=== PATIENT | female | born 1975 | race Caucasian/White ===

== ENCOUNTER 2017-08-12 12:56 | Emergency (ER) | payer OTHER ==
[2017-08-12 13:05] VITALS: BMI 31.3
[2017-08-12] MEDS ORDERED: SODIUM CHLORIDE 0.9% 1000 ML INFUS.BAG IV ONE (13:11)
[2017-08-12 13:55] LABS: BASO % 0.5 % (0-2.0); EOS % 0.9 % (0-4.5); HEMATOCRIT 40.8 % (32.4-45.2); HEMOGLOBIN 13.8 GM/dL (10.7-15.3); LYMPH % 19.7 % (8-40); MCH 29.6 pg (25.7-33.7); MCHC 33.8 g/dl (32.0-36.0); MEAN CELL VOLUME 87.7 fl (80-96); MEAN PLT VOLUME 8.1 fl (7.5-11.1); MONO % 7.9 % (3.8-10.2); PLATELET COUNT 298 K/MM3 (134-434); RBC 4.66 M/mm3 (3.60-5.2); RDW 13.7 % (11.6-15.6)
[2017-08-12 14:01] LABS: URINE APPEARANCE CLEAR; URINE BILIRUBIN NEGATIVE (NEGATIVE); URINE BLOOD NEGATIVE (NEGATIVE); URINE COLOR LTYELLOW; URINE GLUCOSE (UA) NEGATIVE (NEGATIVE); URINE KETONE TRACE (NEGATIVE); URINE LEUK ESTERASE NEGATIVE (NEGATIVE); URINE NITRITE NEGATIVE (NEGATIVE); URINE UROBILINOGEN NEGATIVE mg/dL (0.2-1.0)
[2017-08-12 14:02] LABS: HCG,QUALITATIVE URINE NEGATIVE
[2017-08-12 14:03] LABS: URINE PROTEIN 2+ (NEGATIVE)
[2017-08-12 14:05] LABS: EPI CELLS RARE /HPF (FEW); URINE BACTERIA RARE /hpf (NONE SEEN); URINE HYALINE CAST 2 /lpf; URINE MUCUS RARE
[2017-08-12 14:42] LABS: ALBUMIN 4.1 g/dl (3.4-5.0); ALK PHOS 88 U/L (45-117); ANION GAP 12 (8-16); BILIRUBIN,TOTAL 0.2 mg/dL (0.2-1.0); BLOOD UREA NITROGEN 13 mg/dL (7-18); CALCIUM 8.7 mg/dL (8.5-10.1); CHLORIDE 98 mmol/L (98-107); CO2 23 mmol/L (21-32); CREATININE 0.7 mg/dL (0.55-1.02); GLUCOSE,RANDOM 106 mg/dL (74-106); POTASSIUM 3.8 mmol/L (3.5-5.1); SGOT/AST 16 U/L (15-37); SGPT/ALT 29 U/L (12-78); SODIUM 133 mmol/L (136-145); TOT PROT 7.8 g/dl (6.4-8.2)
--- NOTE | 2017-08-12 15:08 | PDOC ---
History of Present Illness - General History Source: Patient Exam Limitations: No Limitations - History of Present Illness Initial Comments: 08/12/17 15:08 The patient is a 42-year-old female with a significant past medical history of diabetes, hypertension, hyperlipidemia, and anxiety, who presents to the emergency department with visual changes today. She reports she is an employee at [employer] and was walking when she noticed flashing colors in her bilateral eyes for a few minutes, causing her to become concerned. She states she had a mild headache as well. Upon interview, she states her symptoms have resolved. She states she has had hypoglycemic episodes previously but denies having these symptoms before. She states she used to take anxiety medication but does not take them now. The patient denies chest pain, shortness of breath, and dizziness. The patient denies fever, chills, abdominal pain, nausea, vomit, diarrhea, constipation, or urinary changes. Patient denies blurry vision, changes in visual acuity, pressure in the eye, eye pain, or eye redness. Patient denies any swelling, numbness, tingling, or changes in sensation or strength. Denies any recent travel. Allergies: NKDA Past Surgical History: Social History: No toxic habits reported <Mavis Dalton - Last Filed: 08/12/17 15:08> <Jf Terrazas - Last Filed: 08/12/17 18:35> - General Chief Complaint: Blurry Vision Stated Complaint: EMPLOYEE, EYE PROBLEM Time Seen by Provider: 08/12/17 13:10 Past History <Mavis Dalton - Last Filed: 08/12/17 15:08> - Past Medical History COPD: No Diabetes: Yes Disorders: Yes (UTI) HTN: Yes Psychiatric Problems: Yes (anxiety) - Suicide/Smoking/Psychosocial Hx Smoking History: Never smoked Have you smoked in the past 12 months: No Information on smoking cessation initiated: No Hx Alcohol Use: No Drug/Substance Use Hx: No Substance Use Type: None <Jf Terrazas - Last Filed: 08/12/17 18:35> - Past Medical History Allergies/Adverse Reactions: Allergies Allergy/AdvReac Type Severity Reaction Status Date / Time No Known Allergies Allergy Unverified 08/12/17 13:05 Home Medications: Ambulatory Orders metFORMIN HCL [Glucophage -] 1,000 mg PO BID 10/29/14 Lisinopril 10 mg PO DAILY 08/12/17 Review of Systems - Review of Systems Able to Perform ROS?: Yes Comments:: 08/12/17 15:08 A complete review of 10 out of 10 review of systems is taken and is negative apart from what is previously mentioned below and in the HPI. <Mavis Dalton - Last Filed: 08/12/17 15:08> *Physical Exam - Vital Signs Last Vital Signs Temp Pulse Resp BP Pulse Ox 98.2 F 147 H 18 164/98 100 08/12/17 13:01 08/12/17 13:01 08/12/17 13:01 08/12/17 13:01 08/12/17 13:01 - Physical Exam Comments: 08/12/17 15:09 Vitals: Triage Vital signs reviewed General Appearance: no acute distress, well nourished well developed, Head: Atraumatic, normocephalic Eyes: Pupils equal reactive round, extraocular movement intact Cardiac: Regular rate and rhythm, no murmurs, no rubs, no gallops, Lungs: Clear to auscultation bilateral, good air movement bilaterally, Abdomen: Soft, nondistended, normal bowel sounds, nontender to palpation Extremities: Full range of motion to all extremities, no cyanosis, clubbing, or edema Skin: Warm and dry, no rashes or lesions, no petechiae Neuro: AOX3; Cranial Nerves 2-12 grossly intact, Strength intact to all extremities, Sensation intact to all extremities Psych: normal mood, normal affect <Mavis Dalton - Last Filed: 08/12/17 15:08> - Vital Signs Last Vital Signs Temp Pulse Resp BP Pulse Ox 98.2 F 147 H 18 164/98 100 08/12/17 13:01 08/12/17 13:01 08/12/17 13:01 08/12/17 13:01 08/12/17 13:01 <Jf Terrazas - Last Filed: 08/12/17 18:35> Heart Score/ECG Review - ECG Impressions Comment:: 08/12/17 18:35 Sinus tachycardia at 1 18 bpm EKG performed at [address] interval 152, QRS 82, QTC 448, no ST elevations or T-wave inversions Interpreted by me <Jf Terrazas - Last Filed: 08/12/17 18:35> ED Treatment Course - LABORATORY CBC & Chemistry Diagram: 08/12/17 13:47 08/12/17 13:47 - ADDITIONAL ORDERS Additional order review: Laboratory Results 08/12/17 08/12/17 08/12/17 13:47 13:47 13:45 Sodium 133 L Potassium 3.8 Chloride 98 Carbon Dioxide 23 Anion Gap 12 BUN 13 Creatinine 0.7 Creat Clearance w eGFR > 60 POC Glucometer 115.58741 Random Glucose 106 Calcium 8.7 Total Bilirubin 0.2 D AST 16 ALT 29 Alkaline Phosphatase 88 Total Protein 7.8 Albumin 4.1 Urine Color Ltyellow Urine Appearance Clear Urine pH 5.0 Ur Specific [employer] 1.018 Urine Protein 2+ H Urine Glucose (UA) Negative Urine Ketones Trace H Urine Blood Negative Urine Nitrite Negative Urine Bilirubin Negative Urine Urobilinogen Negative Ur Leukocyte Esterase Negative Urine WBC (Auto) 1 Urine RBC (Auto) <1 Ur Epithelial Cells Rare Urine Bacteria Rare Hyaline Casts 2 Urine Mucus Rare Urine HCG, Qual Negative 08/12/17 08/12/17 13:47 13:45 RBC 4.66 MCV 87.7 MCHC 33.8 RDW 13.7 MPV 8.1 Neutrophils % 71.0 Lymphocytes % 19.7 Monocytes % 7.9 Eosinophils % 0.9 Basophils % 0.5 POC Glucometer 115.25075 - Medications Given in the ED: ED Medications Discontinued Medications Generic Name Dose Route Start Last Admin Trade Name Jose Manuelq PRN Reason Stop Dose Admin Sodium Chloride 2,000 ml 08/12/17 13:11 08/12/17 13:54 Normal Saline - IV 08/12/17 13:12 2,000 ml ONCE ONE Administration <Mavis Dalton - Last Filed: 08/12/17 15:08> - LABORATORY CBC & Chemistry Diagram: 08/12/17 13:47 08/12/17 13:47 - ADDITIONAL ORDERS Additional order review: Laboratory Results 08/12/17 08/12/17 08/12/17 13:47 13:47 13:45 Sodium 133 L Potassium 3.8 Chloride 98 Carbon Dioxide 23 Anion Gap 12 BUN 13 Creatinine 0.7 Creat Clearance w eGFR > 60 POC Glucometer 115.69901 Random Glucose 106 Calcium 8.7 Total Bilirubin 0.2 D AST 16 ALT 29 Alkaline Phosphatase 88 Total Protein 7.8 Albumin 4.1 Urine Color Ltyellow Urine Appearance Clear Urine pH 5.0 Ur Specific [employer] 1.018 Urine Protein 2+ H Urine Glucose (UA) Negative Urine Ketones Trace H Urine Blood Negative Urine Nitrite Negative Urine Bilirubin Negative Urine Urobilinogen Negative Ur Leukocyte Esterase Negative Urine WBC (Auto) 1 Urine RBC (Auto) <1 Ur Epithelial Cells Rare Urine Bacteria Rare Hyaline Casts 2 Urine Mucus Rare Urine HCG, Qual Negative 08/12/17 08/12/17 13:47 13:45 RBC 4.66 MCV 87.7 MCHC 33.8 RDW 13.7 MPV 8.1 Neutrophils % 71.0 Lymphocytes % 19.7 Monocytes % 7.9 Eosinophils % 0.9 Basophils % 0.5 POC Glucometer 115.91450 - Medications Given in the ED: ED Medications Discontinued Medications Generic Name Dose Route Start Last Admin Trade Name Freq PRN Reason Stop Dose Admin Sodium Chloride 2,000 ml 08/12/17 13:11 08/12/17 13:54 Normal Saline - IV 08/12/17 13:12 2,000 ml ONCE ONE Administration <Jf Terrazas - Last Filed: 08/12/17 18:35> Medical Decision Making - Medical Decision Making 08/12/17 15:58 42 years old past medical history significant for diabetes presents emergency department with brief episodes of flashing colors in her vision. Upon arrival to the emergency department should patient has been completely asymptomatic with a completely normal neurologic examination Visual acuity 20/20 Bilaterally She was hydrated her labs have been checked she remains asymptomatic. Her EKG demonstrates sinus tachycardia. Patient states she gets very anxious when in the presence of doctors. She states she is very anxious at this time. I offered the patient medication for this but given that she has driven to work she cannot take anything Her heart rate was initially 147 after IV fluids it is now 111. This is comparable to her heart rate the last time she was here. Based on previous chart review. She will follow-up with her primary care provider in 1-2 days and also provided the patient with neurology and ophthalmology follow-up Her thyroid is normal she is not anemic no PE or DVT risk factors At this point her examination is unremarkable she has been observed in the ED for 3 hours she is well-appearing no apparent distress and presented with very brief visual floaters she'll follow-up with Neurontin Opto she'll return to ED immediately for any severe worsening symptoms or for any concerns. 08/12/17 16:00 <Jf Terrazas - Last Filed: 08/12/17 18:35> *DC/Admit/Observation/Transfer - Attestations Scribe Attestion: 08/12/17 15:09 Documentation prepared by aMvis Dalton, acting as medical appliance maker for Jf Terrazas MD, /. <Mavis Dalton - Last Filed: 08/12/17 15:08> - Discharge Dispostion Admit: No <Jf Terrazas - Last Filed: 08/12/17 18:35> Diagnosis at time of Disposition: Floaters Qualifiers: Laterality: unspecified laterality Qualified Code(s): H43.399 - Other vitreous opacities, unspecified eye - Referrals Referrals: Sonia Sumner MD [Primary Care Provider] - Matheus Solis DO [Staff Physician] - Paola Flores MD [Staff Physician] - - Patient Instructions Printed Discharge Instructions: DI for Visual Field Disturbances Additional Instructions: Drink plenty of fluids. Follow-up with her primary care provider in 1-2 days. Return to the emergency department for any severe worsening symptoms any visual changes or for any concerns. Follow-up within 1 week with the forensic locksmith and neurologist referred. - Post Discharge Activity Forms/Work/School Notes: Back to Work
[2017-08-12 15:40] VITALS: BP 136/79
[2017-08-12 15:45] LABS: ACETONE SERUM NEGATIVE (NEGATIVE)
[2017-08-12 16:15] VITALS: PULSE 109; TEMP 98.1
--- NOTE | 2017-08-12 16:24 | EKG ---
Test Reason : Blood Pressure : / mmHG Vent. Rate : 118 BPM Atrial Rate : 118 BPM P-R Int : 152 ms QRS Dur : 082 ms QT Int : 320 ms P-R-T Axes : 048 034 035 degrees QTc Int : 448 ms SINUS TACHYCARDIA POSSIBLE LEFT ATRIAL ENLARGEMENT NONSPECIFIC T WAVE ABNORMALITY ABNORMAL ECG NO PREVIOUS ECGS AVAILABLE Confirmed by MD BHAVYA, YARIEL ([id number]) on 08/12/2017 4:23:35 PM Referred By: Confirmed By:YARIEL LATIF MD
== END 2017-08-12 16:15 | disposition home or self-care (01) ==
LOC: JER 12:56
PROC: 4A07X0Z Measurement of Visual Acuity, External Approach (ICD-10-PCS; principal; 2017-08-12)
DX: H43.393 Other vitreous opacities, bilateral (principal); I10 Essential (primary) hypertension; E11.9 Type 2 diabetes mellitus without complications; E78.00 Pure hypercholesterolemia, unspecified; F41.9 Anxiety disorder, unspecified; Z79.84 Long term (current) use of oral hypoglycemic drugs
CPT/HCPCS: 36415; 80053; 81003; 81015; 82009; 82962; 84443; 84703; 85025; 87086; 93005; 93010; 99283-25; J7030

== ENCOUNTER 2018-06-23 12:09 | Emergency (ER) | payer OTHER ==
[2018-06-23 12:22] VITALS: BMI 31.3
--- NOTE | 2018-06-23 12:37 | PDOC ---
History of Present Illness <Clifford Sanches - Last Filed: 06/23/18 14:37> - History of Present Illness Initial Comments: The patient is a 43F w/ a history of T2DM, HTN, HLD, and anxiety who presents from her PCP's office for evaluation of HTN at her appointment today. The patient's PCP sent an Rx to the pt's pharmacy for Amlodipine 5mg PO daily. However, the PCP sent the pt to the ED to receive the first dose while being monitored to ensure the pt does not become hypotensive. The patient endorses anxiety upon presentation. Denies fevers/chills, GREY, vision changes, chest pain, SOB, abdominal pain, N/V/C /D, or changes in sensation. This is a novel therapy for the pt. For HTN pt is on Lisinopril 10mg PO daily, which she took this AM. Of note, the pt was seen at an Urgent Care yesterday and diagnosed with R OM and is on day 2 of Clindamycin 06/23/18 12:37 <Logan Guardado - Last Filed: 06/23/18 14:50> - General Chief Complaint: Blood Pressure Problem Stated Complaint: BLOOD PRESSURE PROBLEM Past History <Clifford Sanches - Last Filed: 06/23/18 14:37> - Past Medical History COPD: No Diabetes: Yes (NIDM) Disorders: Yes (UTI) HTN: Yes Hypercholesterolemia: Yes Psychiatric Problems: Yes (anxiety) - Immunization History Immunization Up to Date: Yes - Suicide/Smoking/Psychosocial Hx Smoking History: Never smoked Have you smoked in the past 12 months: No Hx Alcohol Use: No Drug/Substance Use Hx: No Substance Use Type: None <Logan Guardado - Last Filed: 06/23/18 14:50> - Past Medical History Allergies/Adverse Reactions: Allergies Allergy/AdvReac Type Severity Reaction Status Date / Time No Known Allergies Allergy Verified 06/23/18 12:19 Home Medications: Ambulatory Orders metFORMIN HCL [Glucophage -] 1,000 mg PO BID 03/30/14 Lisinopril 10 mg PO DAILY 08/12/17 Review of Systems - Review of Systems Able to Perform ROS?: Yes Comments:: GENERAL/CONSTITUTIONAL: No fever or chills. No weakness HEAD, EYES, EARS, NOSE AND THROAT: No change in vision. No ear pain or discharge. No sore throat CARDIOVASCULAR: No chest pain or shortness of breath RESPIRATORY: Denies cough, hemoptysis GASTROINTESTINAL: No nausea, vomiting, diarrhea or constipation GENITOURINARY: No dysuria, frequency, or change in urination MUSCULOSKELETAL: No joint or muscle swelling or pain. No neck or back pain SKIN: No rash NEUROLOGIC: No headache, vertigo, loss of consciousness, or change in strength/ sensation ENDOCRINE: No increased thirst. No abnormal weight change HEMATOLOGIC/LYMPHATIC: No anemia, easy bleeding, or history of blood clots ALLERGIC/IMMUNOLOGIC: No hives or skin allergy 06/23/18 12:35 Is the patient limited Yi proficient: No <Logan Guardado - Last Filed: 06/23/18 14:50> *Physical Exam - Vital Signs Last Vital Signs Temp Pulse Resp BP Pulse Ox 98.5 F 117 H 16 171/99 H 97 06/23/18 12:20 06/23/18 12:20 06/23/18 12:20 06/23/18 12:20 06/23/18 12:20 <Clifford Sanches - Last Filed: 06/23/18 14:37> - Vital Signs Last Vital Signs Temp Pulse Resp BP Pulse Ox 98.5 F 117 H 16 171/99 H 97 06/23/18 12:20 06/23/18 12:20 06/23/18 12:20 06/23/18 12:20 06/23/18 12:20 - Physical Exam Comments: GENERAL: Awake, alert, and fully oriented, in no acute distress HEAD: No signs of trauma, normocephalic, atraumatic EYES: PERRLA, EOMI, sclera anicteric, conjunctiva clear ENT: Hearing grossly normal, nares patent, oropharynx clear without exudates. Moist mucosa LUNGS: No distress, speaks full sentences, clear to auscultation bilaterally HEART: Regular rate and rhythm, normal S1 and S2, no murmurs appreciated, peripheral pulses normal and equal bilaterally ABDOMEN: Soft, nontender, normoactive bowel sounds. No guarding, no rebound EXTREMITIES : Normal inspection, Normal range of motion, no edema. No clubbing or cyanosis NEUROLOGICAL: Cranial nerves II through XII grossly intact. Normal speech, normal gait, no focal sensorimotor deficits SKIN: Warm, Dry 06/23/18 12:35 <Logan Guardado - Last Filed: 06/23/18 14:50> Moderate Sedation - Procedure Monitoring Vital Signs: Procedure Monitoring Vital Signs Temperature 98.5 F 06/23/18 12:20 Pulse Rate 117 H 06/23/18 12:20 Respiratory Rate 16 06/23/18 12:20 Blood Pressure 171/99 H 06/23/18 12:20 O2 Sat by Pulse Oximetry (%) 97 06/23/18 12:20 <Clifford Sanches - Last Filed: 06/23/18 14:37> - Procedure Monitoring Vital Signs: Procedure Monitoring Vital Signs Temperature 98.5 F 06/23/18 12:20 Pulse Rate 117 H 06/23/18 12:20 Respiratory Rate 16 06/23/18 12:20 Blood Pressure 171/99 H 06/23/18 12:20 O2 Sat by Pulse Oximetry (%) 97 06/23/18 12:20 <Logan Guardado - Last Filed: 06/23/18 14:50> ED Treatment Course - Medications Given in the ED: ED Medications Discontinued Medications Generic Name Dose Route Start Last Admin Trade Name Jose Manuelq PRN Reason Stop Dose Admin Amlodipine Besylate 5 mg 06/23/18 12:55 06/23/18 13:39 Norvasc - PO 06/23/18 12:56 5 mg ONCE ONE Administration <Clifford Sanches - Last Filed: 06/23/18 14:37> Medical Decision Making - Medical Decision Making The patient is a 43F w/ a history of T2DM, HTN, HLD, and anxiety who presents for evaluation of asymptomatic HTN and anxiety from her PCP's office. ED Course Amlodipine 5mg PO once -Will recheck BP afterwards Pt w/ Rx filled at her pharmacy already 06/23/18 12:36 Patient's BP slightly improved s/p Amlodipine -BP 168/98 -HR 92 Patient continues to be asymptomatic Plan for D/C w/ PCP f/u Discharge instructions and return precautions given Patient in agreement and verbalized understanding Dispo: home 06/23/18 14:34 <Logan Guardado - Last Filed: 06/23/18 14:50> *DC/Admit/Observation/Transfer <Clifford Sanches - Last Filed: 06/23/18 14:37> - Discharge Dispostion Decision to Admit order: No <Logan Guardado - Last Filed: 06/23/18 14:50> Diagnosis at time of Disposition: Hypertension Qualifiers: Hypertension type: unspecified Qualified Code(s): I10 - Essential (primary) hypertension - Discharge Dispostion Disposition: HOME Condition at time of disposition: Stable - Referrals Referrals: Sonia Sumner MD [Primary Care Provider] - - Patient Instructions Printed Discharge Instructions: DI for High Blood Pressure Additional Instructions: You were seen in the Emergency Department for evaluation of hypertension. You were given Amlodipine 5mg once. Your blood pressure improved slightly. Please fills the prescription that your primary care physician prescribed for you and take as directed. Review the handout provided at discharge. Return to the Emergency Department if you develop fevers/chills, headache, acute change in vision, lightheadedness/dizziness, chest pain, trouble breathing , vomiting, or any new/concerning symptoms. Follow up with your primary doctor within 1 week for further evaluation of your elevated blood pressure. Uncontrolled blood pressure can eventually lead to kidney disease, heart disease, other serious illness, disability, or even . - Post Discharge Activity Forms/Work/School Notes: Back to Work
[2018-06-23] MEDS ORDERED: amLODIPine BESYLATE 5 MG TABLET (FP) PO ONE (12:55)
--- NOTE | 2018-06-23 13:26 | PDOC ---
Attending Attestation - Resident Resident Name: Logan Guardado - ED Attending Attestation I have performed the following: I have examined & evaluated the patient, The case was reviewed & discussed with the resident, I agree w/resident's findings & plan, Exceptions are as noted - HPI HPI: 06/23/18 13:21 The patient is a 42-year-old female with a significant past medical history of diabetes, hypertension, hyperlipidemia, and anxiety, who presents to the emergency department for evaluation of HTN sent by her PCP, Dr. Aparicio, for administration of new anti-HTN. The patient denies any complaints at this time. She states that she was seen by Dr. Aparicio for elevated BP and was started on amlodipine 5mg today. Pt states that she was told to come to the ER for her first dose in order to be monitored. Pt denies any CP/SOB/palpitations. Denies GREY. Denies leg swelling. Pt was prescribed amlodipine 5mg. - Physicial Exam PE: 06/23/18 13:24 GENERAL: Awake, alert, and fully oriented, in no acute distress. HEAD: No signs of trauma EYES: PERRLA, EOMI, sclera anicteric, conjunctiva clear ENT: Auricles normal inspection, hearing grossly normal, nares patent, oropharynx clear without exudates. Moist mucosa NECK: Nontender, no stepoffs, Normal ROM, supple, no lymphadenopathy, JVD, or masses LUNGS: Breath sounds equal, clear to auscultation bilaterally. No wheezes, and no crackles HEART: Regular rate and rhythm, normal S1 and S2, no murmurs, rubs or gallops ABDOMEN: Soft, nontender, normoactive bowel sounds. No guarding, no rebound. No masses EXTREMITIES: Normal range of motion, no edema. No clubbing or cyanosis. No cords, erythema, or tenderness NEUROLOGICAL: Cranial nerves II through XII intact. 5/5 strength and sensation in all extremities, Normal speech, normal gait, normal cerebellar function SKIN: Warm, Dry, normal turgor, no rashes or lesions noted. - Medical Decision Making 06/23/18 13:24 43 F with no complaints, sent here by Dr. Aparicio for first dose of Amlodipine 5mg. Vitals notable for HTN, slight tachycardia. Pt admits she is very nervous and tends to have elevated HR. Denies any complaints of CP/SOB/ palpitations. - Amlodipine 5mg - Recheck vitals 06/23/18 14:36 Pt reassessed - BP improving HR now 92. Pt continues to feel well without any complaints. Pt is well appearing, with normal vitals. Clinically stable for DC at this time. I discussed the physical exam findings, ancillary test results and final diagnoses with the patient. I answered all of the patient's questions. The patient was satisfied with the care received and felt comfortable with the discharge plan and treatment plan. The patient agrees to follow up with the primary care physician within 24-72 hours.
[2018-06-23] MEDS ORDERED: amLODIPine BESYLATE 5 MG TABLET (FP) ONE (13:36)
[2018-06-23 15:09] VITALS: BP 154/85; PULSE 97; TEMP 98
== END 2018-06-23 15:09 | disposition home or self-care (01) ==
LOC: JER 12:09
DX: I10 Essential (primary) hypertension (principal); F41.9 Anxiety disorder, unspecified; E78.00 Pure hypercholesterolemia, unspecified; E11.9 Type 2 diabetes mellitus without complications; Z79.84 Long term (current) use of oral hypoglycemic drugs; Z87.440 Personal history of urinary (tract) infections
CPT/HCPCS: 99282-25

== ENCOUNTER 2018-06-26 09:04 | Emergency (ER) | payer OTHER ==
[2018-06-26 09:16] VITALS: BMI 31.3
--- NOTE | 2018-06-26 10:01 | PDOC ---
History of Present Illness - General Chief Complaint: Blood Pressure Problem Stated Complaint: BLOOD PRESSURE PROBLEM Time Seen by Provider: 06/26/18 09:33 History Source: Patient Exam Limitations: No Limitations - History of Present Illness Initial Comments: 06/26/18 10:04 43-year-old female with a significant past medical history of diabetes, hypertension, hyperlipidemia, and anxiety, who [facility] for elevated BP to 182/90. She took norvasc 900AM [employer]. last night had episode of headache, resolved with aleve. 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 No yusuf/dizziness, cp, sob, n/v/d, weakness or paresthesias. Of note, she has been taking clindamycin x 3 days for left ear skin infection, which is improving. + mild URI sx x several days, but no decongestant use. Denies any caffeine intake , drugs/etoh or smoking. Denies fatty or salty food intake. Denies increased stressors in life or work. The patient denies any complaints at this time. She states that she was seen by Dr. Aparicio for elevated BP and was started on amlodipine 5mg on 06/23/18, and subsequently monitored in the ED for symptoms/side effects. She takes Lisinopril 10mg PO daily and norvasc daily (started earlier this week) . ROS Constitutional: no fevers or chills. HEENT: no headache or dizziness. No congestion. No visual/hearing disturbances. CVS: no cp or syncope. Resp: no sob. No cough. Gastrointestinal: no abdominal pain, nausea or vomiting. Genitourinary: no urinary sx, hematuria. MUSCULOSKELETAL: No joint pain and swelling. No neck or back pain. SKIN: no redness or skin changes, no discharge, no rash. No wounds. Hematologic: no easy bruising/bleeding. NEUROLOGIC: No headache, dizziness, LOC or altered mental status. No weakness, numbness or tingling. Allergic/Immunologic: no allergies All other systems reviewed and negative, or as documented in HPI. PE: General: Well appearing, awake and alert, mildly anxious. HEENT: NCAT, PERRL, EOMI, clear conjunctiva, anicteric, moist mucus membranes, clear oropharynx, no oral lesions.. Neck: neck supple, FROM Resp: CTAB, normal and even respirations, no respiratory distress CVS: intermittent tachycardia, no murmurs, 2+ peripheral pulses throughout, no peripheral edema Abdomen: soft, NTND, no peritoneal signs. Back: nontender, normal inspection and ROM MSK: no edema, FLEMING x4, ROM intact. No clubbing or cyanosis. normal bulk and tone. Neuro: alert, speech clear; no focal neurologic deficits, 5/5 prox/distal strength in all extrem. Psych: Anxious Skin: warm and well perfused, cap refill <2 sec, normal color Past History - Past Medical History Allergies/Adverse Reactions: Allergies Allergy/AdvReac Type Severity Reaction Status Date / Time No Known Allergies Allergy Verified 06/26/18 09:10 Home Medications: Ambulatory Orders metFORMIN HCL [Glucophage -] 1,000 mg PO BID 03/30/14 Lisinopril 10 mg PO DAILY 08/12/17 COPD: No Diabetes: Yes (NIDM) Disorders: Yes (UTI) HTN: Yes Hypercholesterolemia: Yes Psychiatric Problems: Yes (anxiety) - Immunization History Immunization Up to Date: Yes - Suicide/Smoking/Psychosocial Hx Smoking History: Never smoked Have you smoked in the past 12 months: No Hx Alcohol Use: No Drug/Substance Use Hx: No Substance Use Type: None *Physical Exam - Vital Signs Last Vital Signs Temp Pulse Resp BP Pulse Ox 97.5 F L 74 18 171/100 H 99 06/26/18 09:10 06/26/18 09:10 06/26/18 09:10 06/26/18 09:10 06/26/18 09:10 Moderate Sedation - Procedure Monitoring Vital Signs: Procedure Monitoring Vital Signs Temperature 97.5 F L 06/26/18 09:10 Pulse Rate 74 06/26/18 09:10 Respiratory Rate 18 06/26/18 09:10 Blood Pressure 171/100 H 06/26/18 09:10 O2 Sat by Pulse Oximetry (%) 99 06/26/18 09:10 Heart Score/ECG Review - ECG Impressions Normal ECG: Yes Comment:: 06/26/18 10:10 EKG normal sinus rhythm, mild tachycardia to 109 bpm, no interval abnormalities , narrow QRS, ST and T wave segments and morphology normal. Nonspecific T wave abnormalities in III, AVF - similar to prior ED Treatment Course - LABORATORY CBC & Chemistry Diagram: 06/26/18 10:04 06/26/18 10:04 Medical Decision Making - Medical Decision Making 06/26/18 10:05 See HPI for details Vital signs reviewed, no fever, mild tachy from anxiety. +BP elevated, rechecked bilaterally 160/100s. Prior notes reviewed, including admissions, discharges and consultations. laboratory results and imaging reviewed, basic labs and lytes wnl, notable for mild elevation in Blood sugar 230, missed metformin this morning and also ate breakfast. EKG normal sinus rhythm, mild tachycardia to 109 bpm, no interval abnormalities , narrow QRS, ST and T wave segments and morphology normal. Nonspecific T wave abnormalities in III, AVF - similar to prior ED course: already took norvasc today at 9am, will recheck BP. asymptomatic currently. VS improved, anxiety controlled. HR down to 90s. with 160s/90s - more normalized , no symptoms, no e/o end organ damage called to Dr Aparicio _gave clinical update and followup closely as outpatient for recheck and management of her regimen and BP control. diet modifications, stress reduction discussed, compliance with medications glycemic control as well properly fitting BP monitor cuff to be used, as she does not have a working one currently. Dispo: Pt informed of my clinical impression, treatment recommendations and disposition plan. All questions answered to patient's satisfaction and expressed understanding and comfort with this. Reasons for returning to the ED sooner discussed with the patient otherwise, follow up with primary care physician. At the time of discharge, the patient is alert, clinically improved, tolerating po and verbalizes understanding of instructions. Patient does not suffer from an acute life-threatening medical condition at this time she is safe for outpatient follow-up. 06/26/18 10:09 06/26/18 11:24 *DC/Admit/Observation/Transfer Diagnosis at time of Disposition: Hypertension Qualifiers: Hypertension type: unspecified Qualified Code(s): I10 - Essential (primary) hypertension - Discharge Dispostion Disposition: HOME Condition at time of disposition: Improved Decision to Admit order: No - Referrals Referrals: Sonia Sumner MD [Primary Care Provider] - - Patient Instructions Printed Discharge Instructions: DI for High Blood Pressure, How to Monitor Your Blood Pressure at Home Additional Instructions: Your laboratory / imaging results were normal, your EKG was normal and similar to prior your blood pressure improved here, make sure to have it rechecked with your primary doctor. take your metformin and monitor your sugars also use a blood pressure monitor device that fits properly over your arm and can be automatic, this you can find with your local pharmacy Follow up with your physician and consultants as instructed, take your medications as instructed including amlodipine daily and lisinopril daily. do not take extra doses until you see your doctor monitor your sodium and food intake, no fatty foods or salty foods that could increase blood pressure relax and reduce your stress levels. Return if worsening symptoms including fevers, headache, vomiting, visual or hearing disturbances, abdominal pain, chest pain, shortness of breath, syncope, dehydration, inability to take things by mouth/vomiting, altered mental status, or worsening concerning symptoms. do not drink alcohol with your medications. - Post Discharge Activity Forms/Work/School Notes: Back to Work
[2018-06-26] MEDS ORDERED: ALPRAZolam 0.25 MG TABLET PO ONE (10:02)
[2018-06-26 10:05] VITALS: TEMP 98.3
[2018-06-26] MEDS ORDERED: ALPRAZolam 0.25 MG TABLET ONE (10:06)
[2018-06-26 10:54] LABS: ALK PHOS 94 U/L (45-117); ANION GAP 9 MMOL/L (8-16); BILIRUBIN,TOTAL 0.4 mg/dL (0.2-1); BLOOD UREA NITROGEN 11 mg/dL (7-18); CALCIUM 8.8 mg/dL (8.5-10.1); CHLORIDE 101 mmol/L (98-107); CO2 27 mmol/L (21-32); CREATININE 0.7 mg/dL (0.55-1.3); GLUCOSE,RANDOM 230 mg/dL (74-106); POTASSIUM 3.6 mmol/L (3.5-5.1); SGOT/AST 18 U/L (15-37); SGPT/ALT 34 U/L (13-61); SODIUM 137 mmol/L (136-145); TOT PROT 7.8 g/dl (6.4-8.2)
[2018-06-26 11:13] VITALS: BP 165/98; PULSE 95
[2018-06-26 11:46] LABS: BASO % 0.6 % (0-2.0); EOS % 0.4 % (0-4.5); HEMATOCRIT 39.3 % (32.4-45.2); HEMOGLOBIN 13.9 GM/dL (10.7-15.3); LYMPH % 9.7 % (8-40); MCH 31.5 pg (25.7-33.7); MCHC 35.5 g/dl (32.0-36.0); MEAN PLT VOLUME 9.3 fl (7.5-11.1); NEUT % 82.3 % (42.8-82.8); PLATELET COUNT 285 K/MM3 (134-434); RBC 4.41 M/mm3 (3.60-5.2); RDW 13.5 % (11.6-15.6); WHITE BLOOD COUNT 5.7 K/mm3 (4.0-10.0)
--- NOTE | 2018-06-26 11:55 | EKG ---
Test Reason : Blood Pressure : / mmHG Vent. Rate : 109 BPM Atrial Rate : 111 BPM P-R Int : 146 ms QRS Dur : 084 ms QT Int : 344 ms P-R-T Axes : 055 041 030 degrees QTc Int : 463 ms SINUS TACHYCARDIA NONSPECIFIC T WAVE ABNORMALITY ABNORMAL ECG WHEN COMPARED WITH ECG OF 12-AUG-2017 13:44, NO SIGNIFICANT CHANGE WAS FOUND Confirmed by PUMA BANG MD ([id number]) on 06/26/2018 11:54:56 AM Referred By: Confirmed By:PUMA BANG MD
== END 2018-06-26 11:38 | disposition home or self-care (01) ==
LOC: JER 09:04
DX: I10 Essential (primary) hypertension (principal); E11.9 Type 2 diabetes mellitus without complications; Z79.84 Long term (current) use of oral hypoglycemic drugs; E78.00 Pure hypercholesterolemia, unspecified; E78.5 Hyperlipidemia, unspecified; F41.9 Anxiety disorder, unspecified
CPT/HCPCS: 36415; 80053; 85025; 93005; 93010; 99283-25

== ENCOUNTER 2019-02-08 09:22 | Emergency (ER) | payer OTHER ==
[2019-02-08 09:27] VITALS: TEMP 98.2; BMI 31.3
[2019-02-08] MEDS ORDERED: LOSARTAN POTASSIUM 25 MG TABLET PO ONE (09:54)
[2019-02-08] MEDS ORDERED: ASPIRIN 81 MG CHEWABLE TABLETS PO ONE (09:54)
--- NOTE | 2019-02-08 10:04 | PDOC ---
History of Present Illness - General Chief Complaint: Chest Pain Stated Complaint: CHEST PAIN Time Seen by Provider: 02/08/19 09:42 - History of Present Illness Initial Comments: 02/08/19 09:59 43 yo F with h/o HTN, DM, HLD, anxiety who p/w left sided chest pain. Patient reports intermittent, spontaneous, non pleuritic, left sided, sharp, chest pain , lasting for seconds and recurring spontaneously, with radiation to left sided back. No identifiable triggers or alleviators. Denies h/o similar pain in past. + nausea without vomiting, now resolved, beginning (02/07/19). Pain onset (01/18). No other complaints. Has been evaluated by cardiology in past with holter monitor testing (06/20). Denies exogenous hormone therapy, leg swelling or pain, recent travel/immobilization, or surgery.No h/o malignancy. Patient denies GREY, vision change, palpitations, cough, wheezing, orthopena, PND , leg swelling/pain, F,C, SOB, urinary complaints, hematuria, BPR, abdominal pain, diarrhea, constipation, lightheadedness, weakness, sensory changes. PMHx: as noted above. Denies h/o stents, CABG, endoscopy. ROS: as noted SHx: Denies Etoh, IVDA, tobacco use Allergies: NKDA Past History - Past Medical History Allergies/Adverse Reactions: Allergies Allergy/AdvReac Type Severity Reaction Status Date / Time No Known Allergies Allergy Verified 06/26/18 09:10 Home Medications: Ambulatory Orders metFORMIN HCL [Glucophage -] 1,000 mg PO BID 03/30/14 Lisinopril 10 mg PO DAILY 08/12/17 COPD: No Diabetes: Yes (NIDM) Disorders: Yes (UTI) HTN: Yes Hypercholesterolemia: Yes Psychiatric Problems: Yes (anxiety) - Surgical History Cardiac Surgery: No Gastric Stapling: No Lung Surgery: No - Immunization History Immunization Up to Date: Yes - Suicide/Smoking/Psychosocial Hx Smoking History: Never smoked Have you smoked in the past 12 months: No Hx Alcohol Use: No Drug/Substance Use Hx: No Substance Use Type: None Review of Systems - Review of Systems Comments:: 02/08/19 10:03 GENERAL/CONSTITUTIONAL: No fever or chills. No weakness. HEAD, EYES, EARS, NOSE AND THROAT: No change in vision. No ear pain or discharge. No sore throat. CARDIOVASCULAR: + chest pain. No shortness of breath RESPIRATORY: No cough, wheezing, or hemoptysis. GASTROINTESTINAL: No nausea, vomiting, diarrhea or constipation. GENITOURINARY: No dysuria, frequency, or change in urination. MUSCULOSKELETAL: No joint or muscle swelling or pain. No neck or back pain. SKIN: No rash NEUROLOGIC: No headache, vertigo, loss of consciousness, or change in strength/ sensation. ENDOCRINE: No increased thirst. No abnormal weight change HEMATOLOGIC/LYMPHATIC: No anemia, easy bleeding, or history of blood clots. ALLERGIC/IMMUNOLOGIC: No hives or skin allergy. *Physical Exam - Vital Signs Last Vital Signs Temp Pulse Resp BP Pulse Ox 98.2 F 125 H 16 166/85 99 02/08/19 09:25 02/08/19 09:25 02/08/19 09:25 02/08/19 09:25 02/08/19 09:25 - Physical Exam Comments: 02/08/19 10:03 GENERAL: Awake, alert, and fully oriented, in no acute distress HEAD: No signs of trauma, normocephalic, atraumatic EYES: PERRLA, EOMI, sclera anicteric, conjunctiva clear ENT: Auricles normal inspection, hearing grossly normal, nares patent, oropharynx clear without exudates. Moist mucosa NECK: Normal ROM, supple, no lymphadenopathy, JVD, or masses LUNGS: No distress, speaks full sentences, clear to auscultation bilaterally HEART: Regular rate and rhythm, normal S1 and S2, no murmurs, rubs or gallops, peripheral pulses normal and equal bilaterally. ABDOMEN: Soft, nontender, normoactive bowel sounds. No guarding, no rebound. No masses EXTREMITIES : Normal inspection, Normal range of motion, no edema. No clubbing or cyanosis NEUROLOGICAL: Cranial nerves II through XII grossly intact. Normal speech, normal gait, no focal sensorimotor deficits Heart Score/ECG Review - History History: Slightly suspicious - Electrocardiogram EKG: Non specific repolarization disturbance - Age Age: </= 45 - Risk Factors Risk Factors Heart Score: Yes Hx Hypercholesterolemia, Yes Hx Hypertension, Yes Hx Diabetes, Yes Positive family hx of cardiac disease, Yes Hx Obesity Based on the list above the patient has:: >/=3 risk factors or Hx atherosclerotic disease - Troponin Troponin: </= normal limit - Score Heart Score - Total: 3 ED Treatment Course - LABORATORY CBC & Chemistry Diagram: 02/08/19 10:33 02/08/19 10:33 - RADIOLOGY Radiology Studies Ordered: Category Date Time Status CXRPORT [CHEST X-RAY PORTABLE*] [RAD] Stat Radiology 02/08/19 09:53 Ordered Medical Decision Making - Medical Decision Making 02/08/19 10:04 43 yo F with h/o HTN, DM, HLD, anxiety who p/w left sided chest pain. HR 125, BP 166/85, vitals otherwise wnl, AF, A&Ox3. Physical exam unremarkable. ACS/LA r /o. R/o PNA. PERC + , HR 125, but low risk based on Wells criteria. Patient also reports h/o tachycardia, on Metoprolol. Will consider GI ( gastritis, esophagitis/GERD, pancreatits, biliary dz.), pericarditis, effusion, MSK etiology. Patient currently without pain. Will reassess. Ed Course: Patient reports missing home dose Metoprolol 100 mg, and Losartan 25 mg ASA 162 mg EKG: NSR with HR 104, absent JUAN MANUEL, STD. + TWI leads V2-V6. Q waves lead II. Nml interval duration and axis. Nml R wave progression. + Interval development of TWI leads V4-V6 (06/26/18). 02/08/19 11:[address] Adelaide Diaz answering service, awaiting call back [phone]. Dr. Holloway contract sheltered workshop supervisor Dr. Bermudez. Patient endorsed to Dr. Holloway. Heart score 3 02/08/19 12:27 Pt. to be admitted to [facility] for elevated heart score, r/o ACS. Stress test 02/08/19 12:48 Laboratory Tests 02/08/19 02/08/19 02/08/19 10:33 10:33 10:33 WBC 5.4 Hgb 12.9 Hct 37.4 Plt Count 262 Sodium 138 Potassium 3.5 BUN 14.1 Creatinine 0.8 Troponin I < 0.02 Lipase 109 Serum , Qual Negative 02/08/19 16:27 Outpatient stress test has been scheduled for (02/09/19)with Jewel Granados. Patient stable for d/c with return precautions *DC/Admit/Observation/Transfer Diagnosis at time of Disposition: Chest pain Qualifiers: Chest pain type: unspecified Qualified Code(s): R07.9 - Chest pain, unspecified - Discharge Dispostion Condition at time of disposition: Stable Decision to Admit order: Yes - Referrals Referrals: Sonia Sumner MD [Primary Care Provider] - Guido Holloway MD [Staff Physician] - Augustus Alves MD [Staff Physician] - - Patient Instructions Printed Discharge Instructions: DI for Chest Pain Additional Instructions: Please return to the emergency department with any new or worsening symptoms or concerns. Including but not limited to chest pain, vomiting, shortness of breath. Please follow up with your clinical asst within 24 hours. Please follow up with cardiology as agreed. Outpatient stress test has been scheduled for (03/20)with Jewel Granados. - Post Discharge Activity
--- NOTE | 2019-02-08 10:05 | PDOC ---
Attending Attestation - Resident Resident Name: Yunior Rehman - ED Attending Attestation I have performed the following: I have examined & evaluated the patient, The case was reviewed & discussed with the resident, I agree w/resident's findings & plan, Exceptions are as noted - HPI HPI: 02/08/19 10:28 43y F hx of htn, hl, dm, anxiety, presents with complaint of L sided chest pain that is intermittent, nonpleuritic, L chest radiating to the L axilla, lasting for seconds before resolving since yesterday morning. Does not worsen with any activities including breathing, arm movement, exerition, body position. she endorsed alittle nausea this morning and this morning without vomiting that resolved after she had a few crackers. denies any nausea iwth these peiosdes or currently. Denies any fever/chills, cp, sob, abd pain, focal numbness/tingling/ weakness, back pain, neck pain headache, palpitations, leg swelling, cough, hemoptysis. social: denies smoking, ivdu family hx: mother with dm, htn,, father req pacemaker, but hasnt had CAD as far as she is aware - Physicial Exam PE: 02/08/19 11:15 GENERAL: The patient is awake, alert, and fully oriented, Nontoxic - in no acute distress. HEAD: Normocephalic, atraumatic. EYES: extraocular movements intact, sclera anicteric, conjunctiva clear. ENT: Normal voice, Moist mucous membranes. NECK: Normal range of motion, supple LUNGS: Breath sounds equal, clear to auscultation bilaterally. No wheezes, no rhonchi, no rales. HEART: Regular rate and rhythm, normal S1 and S2 without murmur, rub or gallop. ABDOMEN: Soft, nontender, No guarding, no rebound. No CVA tenderness EXTREMITIES: Normal range of motion, no edema. NEUROLOGICAL: No facial assymetry, Normal speech, PSYCH: Normal mood, normal affect. SKIN: Warm, Dry, normal turgor, - Medical Decision Making 02/08/19 11:15 Differential for the patients chest pain includes but not limited to acute coronary syndrome, aortic dissection, pneumonia, pulmonary embolism, AAA, based on the patients clinical syndrome, i believe that ACS is not likely due to atypical sypmtoms, lack of exertional symptoms . Do not feel that PE likely - due to episodic nature of sypmtoms. will obtain blood work including: cbc, cmp, UA, UHCG ekg, troponin to r/o acs cxr to r/o acute pulmonary disease ivf for hydration as pt noted tachycardic at triage = suspect this may be due to dehdyration her ekg noted for q wave in lead III and TWI in magnus/lateral leads - when compared with prior ekg, it seems like the lateral TWI are new. will discuss with dr. navarrete Heart Score/ECG Review - ECG Impressions Comment:: 02/08/19 11:22 Twelve-lead EKG was performed and reviewed by me. There is normal sinus rhythm with a rate of 104 twi in anterior and lateral leads (lateral TWI are new when compared with prior ekg) q wave in III (present on prior ekgs)
[2019-02-08] MEDS ORDERED: ASPIRIN 81 MG CHEWABLE TABLETS ONE (10:24)
[2019-02-08] MEDS ORDERED: LOSARTAN POTASSIUM 50 MG TABLET (FP) ONE (10:24)
[2019-02-08 10:48] LABS: BASO % 0.6 % (0-2.0); EOS % 0.5 % (0-4.5); HEMATOCRIT 37.4 % (32.4-45.2); HEMOGLOBIN 12.9 GM/dL (10.7-15.3); LYMPH % 12.1 % (8-40); MCH 30.2 pg (25.7-33.7); MCHC 34.4 g/dl (32.0-36.0); MEAN CELL VOLUME 87.7 fl (80-96); MEAN PLT VOLUME 8.4 fl (7.5-11.1); MONO % 7.6 % (3.8-10.2); NEUT % 79.2 % (42.8-82.8); PLATELET COUNT 262 K/MM3 (134-434); RBC 4.26 M/mm3 (3.60-5.2); RDW 13.1 % (11.6-15.6); WHITE BLOOD COUNT 5.4 K/mm3 (4.0-10.0)
[2019-02-08 11:20] LABS: ALK PHOS 92 U/L (45-117); ANION GAP 12 MMOL/L (8-16); BILIRUBIN,TOTAL 0.6 mg/dL (0.2-1); BLOOD UREA NITROGEN 14.1 mg/dL (7-18); CHLORIDE 97 mmol/L (98-107); CO2 29 mmol/L (21-32); CREATININE 0.8 mg/dL (0.55-1.3); GLUCOSE,RANDOM 206 mg/dL (74-106); LIPASE 109 U/L (73-393); POTASSIUM 3.5 mmol/L (3.5-5.1); SGOT/AST 25 U/L (15-37); SGPT/ALT 38 U/L (13-61); SODIUM 138 mmol/L (136-145); TOT PROT 7.6 g/dl (6.4-8.2)
--- NOTE | 2019-02-08 11:24 | EKG ---
Test Reason : Blood Pressure : / mmHG Vent. Rate : 104 BPM Atrial Rate : 104 BPM P-R Int : 146 ms QRS Dur : 088 ms QT Int : 348 ms P-R-T Axes : 050 026 084 degrees QTc Int : 457 ms SINUS TACHYCARDIA POSSIBLE LEFT ATRIAL ENLARGEMENT ABNORMAL ECG WHEN COMPARED WITH ECG OF 26-JUN-2018 09:58, T WAVE INVERSION NOW EVIDENT IN INFERIOR LEADS T WAVE INVERSION NOW EVIDENT IN LATERAL LEADS Confirmed by MARILEE GAITAN, ROSENDA ([id number]) on 02/08/2019 11:23:39 AM Referred By: Confirmed By:ROSENDA HUNT MD
--- NOTE | 2019-02-08 11:49 | CON.CARD ---
Consult Consult Specialty:: cardio - History of Present Illness Chief Complaint: cp History of Present Illness: 43 F here with CP. describes somewhat diffuse location L pectoral region discomfort occurring at rest mult times yesterday and today. lasts couple of seconds only. no assctd jaw/arm discomfort, + assctd localized L upper back pain at times. pain mild, 2/10 intensity. no sob, diaph, LH with it. no exertional sx's noted. has been having upset stomach sx's of late. notes that she's been belching a lot and thinks this has helped relieve the pain at times. has had this off and on for months, < 1 yr she thinks. feels well currently admits to not taking her crestor for a while sees dr navarrete for CAD rf's, HTN (urgency in 06/20), DM, HPL. bp 07/21 o.v. 140/100. was 165/80s here denies FH of early CAD never cigs, no cocaine/other drugs - Alcohol/Substance Use Hx Alcohol Use: No - Smoking History Smoking history: Never smoked Have you smoked in the past 12 months: No Home Medications - Allergies Allergies/Adverse Reactions: Allergies Allergy/AdvReac Type Severity Reaction Status Date / Time No Known Allergies Allergy Verified 06/26/18 09:10 - Home Medications Home Medications: Ambulatory Orders metFORMIN HCL [Glucophage -] 1,000 mg PO BID 03/30/14 Lisinopril 10 mg PO DAILY 08/12/17 Review of Systems - Review of Systems Constitutional: denies: Chills, Fever Eyes: denies: Eye Pain HENT: denies: Nasal Congestion Neck: denies: Stiffness Cardiovascular: denies: Palpitations Respiratory: denies: Orthopnea, PND Gastrointestinal: denies: Diarrhea, Rectal Bleeding Genitourinary: denies: Burning, Hematuria Musculoskeletal: denies: Muscle Pain Integumentary: denies: Rash Neurological: denies: Numbness, Seizure, Syncope Endocrine: denies: Excessive Sweating Hematology/Lymphatic: denies: Excessive Bleeding Vital Signs: Vital Signs Temperature 98.2 F 02/08/19 09:25 Pulse Rate 125 H 02/08/19 09:25 Respiratory Rate 16 02/08/19 09:25 Blood Pressure 166/85 02/08/19 09:25 O2 Sat by Pulse Oximetry (%) 99 02/08/19 09:25 Constitutional: Yes: Well Nourished, No Distress Eyes: No: Sclera Icterus HENT: No: Nasal Congestion Neck: No: Decreased ROM Respiratory: Yes: CTA Bilaterally. No: Accessory Muscle Use Gastrointestinal: Yes: Normal Bowel Sounds. No: Distention, Hepatomegaly, Palpable Mass, Tenderness Cardiovascular: Yes: Regular Rate and Rhythm JVD: No Carotid Bruit: No PMI: Non-Displaced Heart Sounds: Yes: S1, S2. No: Gallop Murmur: No: Systolic Murmur, Diastolic Murmur Musculoskeletal: Yes: Other (No kyphosis) Extremities: No: Cool, Cyanosis Edema: No Peripheral Pulses: 2+ Left Carotid, 2+ Right Carotid, 2+ Left Doralis Pedis, 2+ Right Dorsalis Pedis Integumentary: No: Jaundice Neurological: Yes: Alert, Oriented (x3) Psychiatric: No: Agitated - Other Data Labs, Other Data: CBC, BMP 02/08/19 10:33 02/08/19 10:33 Troponin, BNP 02/08/19 10:33 Troponin I < 0.02 Troponin, BNP 02/08/19 10:33 Troponin I < 0.02 Assessment/Plan Echo 07/21: nl LV/EF, no LVH. nl RV, nl valve fxn CXR: clear lungs/pleura ECG 02/08 (9:32 am): NSR, diffuse ST-Ts c/w ischemia--similar but more pronounced vs 06/20 here, signif changed appearance vs prior from office chest pain: -ECG appears diffusely ischemic, though when compared to 06/20 it is only slightly more pronounced. -trop neg x 1 -pt with mult uncontrolled RFs (bp suboptimal, not complying with statin, last A1c 7.5) and risk factors for atypical sx's--still, sx's sound most likely related to gas/bloating +/- GERD -tender over affected area but not similar pain -rec stress echo to be done today, prior to discharge. -will give dose of hydral po now to bring bp to around 140/80s to minimize likelihood of HTN response to exercise aborting the stress test--d/w'd dr deutsch in ER HTN: -bp suboptimally controlled in office and here -cont home meds -outpt f/u dr navarrete DM: -suboptimal control HPL: -resume home statin, f/u with dr navarrete
[2019-02-08 16:50] VITALS: BP 155/97; PULSE 88
== END 2019-02-08 16:50 | disposition home or self-care (01) ==
LOC: JER 09:22
DX: R07.9 Chest pain, unspecified (principal); I10 Essential (primary) hypertension; E11.9 Type 2 diabetes mellitus without complications; Z79.84 Long term (current) use of oral hypoglycemic drugs; E78.00 Pure hypercholesterolemia, unspecified; F41.9 Anxiety disorder, unspecified
CPT/HCPCS: 36415; 71045-TC-FY; 80053; 82550; 83690; 84484; 84703; 85025; 93005; 93010; 99284-25